=== PATIENT | male | born 1975 | race Caucasian/White ===

== ENCOUNTER 2018-06-20 08:47 | Observation (INO) | payer BC ==
[2018-06-20] MEDS ORDERED: SODIUM CHLORIDE 0.9% 1,000 ML IV STA ×2 (09:12)
--- NOTE | 2018-06-20 10:00 | ED ---
Chest Pain HPI - General Chief Complaint: Chest Pain Stated Complaint: high blood pressure, chest ache Time Seen by Provider: 06/20/18 09:12 Source: patient, RN notes reviewed, old records reviewed Mode of arrival: ambulatory Limitations: no limitations - History of Present Illness Initial Comments: This is a 43-year-old male the ER for evasive chest pain left-sided chest pain starting last night. Patient has history of high blood pressure. Patient states chest pain and cervicitis persistent up-to-date has been persistent consistent. No recent travel she no sick contacts no fever cough or congestion. No episodes of diaphoresis. No prior cardiac evaluation. Patient has a family history of high blood pressure, no history of heart disease that he knows, patient does not have high cholesterol no diabetes nonsmoker MD Complaint: chest pain -: hour(s) (12) Onset: during rest Pain Location: left chest Pain Radiation: none Severity: moderate Severity scale (1-10): 3 Quality: tightness Consistency: constant Improves With: other (Nothing, patient also her blood pressure to be high) Worsens With: nothing Anginal Symptoms: other (None) Other Symptoms: other (None) Treatments Prior to Arrival: none - Related Data Home Medications Medication Instructions Recorded Confirmed Losartan Potassium 100 mg PO DAILY 06/20/18 06/20/18 Allergies Allergy/AdvReac Type Severity Reaction Status Date / Time No Known Allergies Allergy Verified 06/20/18 09:38 Review of Systems ROS Statement: Those systems with pertinent positive or pertinent negative responses have been documented in the HPI. ROS Other: All systems not noted in ROS Statement are negative. EKG Findings - EKG Comments: EKG Findings:: EKG shows sinus rhythm rate of 74, PA 150, QRS 106, QTc 450 Past Medical History Past Medical History: Hypertension History of Any Multi-Drug Resistant Organisms: None Reported Additional Past Surgical History / Comment(s): surgery for pyloric stenosis Past Psychological History: No Psychological Hx Reported Smoking Status: Never smoker Past Alcohol Use History: None Reported Past Drug Use History: None Reported General Exam Limitations: no limitations General appearance: alert, in no apparent distress, anxious Head exam: Present: atraumatic, normocephalic, normal inspection Eye exam: Present: normal appearance, PERRL, EOMI. Absent: scleral icterus, conjunctival injection, periorbital swelling ENT exam: Present: normal exam, mucous membranes moist Neck exam: Present: normal inspection. Absent: tenderness, meningismus, lymphadenopathy Respiratory exam: Present: normal lung sounds bilaterally. Absent: respiratory distress, wheezes, rales, rhonchi, stridor Cardiovascular Exam: Present: regular rate, normal rhythm, normal heart sounds. Absent: systolic murmur, diastolic murmur, rubs, gallop, clicks GI/Abdominal exam: Present: soft, normal bowel sounds. Absent: distended, tenderness, guarding, rebound, rigid Extremities exam: Present: normal inspection, full ROM, normal capillary refill. Absent: tenderness, pedal edema, joint swelling, calf tenderness Back exam: Present: normal inspection Neurological exam: Present: alert, oriented X3, CN II-XII intact Psychiatric exam: Present: normal affect, normal mood Skin exam: Present: warm, dry, intact, normal color. Absent: rash Course Vital Signs 06/20/18 06/20/18 08:51 11:21 Temperature 98.3 F Pulse Rate 79 Respiratory 16 17 Rate Blood Pressure 160/101 150/98 O2 Sat by Pulse 99 99 Oximetry - Reevaluation(s) Reevaluation #1: 06/20/18 13:39 Medical records reviewed, noncontributory Reevaluation #2: 06/20/18 13:39 Patient still is complaining of chest pain Reevaluation #5: 06/20/18 13:[address] angio chest negative for acute disease Chest Pain MDM - MDM 43 male the ER for evaluation chest pain, coming of chest pain observation. Patient is CT here in the ER which is negative for acute disease, troponin negative. Patient be admitted for cardiology observation Critical Care Time Critical Care Time: Yes Total Critical Care Time: 31 Disposition Clinical Impression: Chest pain Disposition: ADMITTED IP TO THIS HOSP Condition: Undetermined Instructions: Chest Pain (ED) Is patient prescribed a controlled substance at d/c from ED?: No Referrals: Raven Hughes MD [Primary Care Provider] - 1-2 days
[2018-06-20 10:24] LABS: Basophils % (A) 1 %; Eosinophils # (A) 0.2 k/uL (0-0.7); Eosinophils % (A) 2 %; HGB 14.4 gm/dL (13.0-17.5); Lymphocytes % (A) 29 %; MCH 28.9 pg (25.0-35.0); MCHC 32.1 g/dL (31.0-37.0); Mean Platelet Volume 6.9; Monocytes # (A) 0.4 k/uL (0-1.0); Monocytes % (A) 6 %; Neutrophils % (A) 59 %; Platelet Count 284 k/uL (150-450); RDW 13.5 % (11.5-15.5); WBC 6.7 k/uL (3.8-10.6)
[2018-06-20 10:27] LABS: ALT 48 U/L (21-72); AST 26 U/L (17-59); Albumin 4.2 g/dL (3.5-5.0); Alkaline Phosphatase 74 U/L (38-126); Anion Gap 8 mmol/L; Blood Urea Nitrogen 16 mg/dL (9-20); Calcium 9.6 mg/dL (8.4-10.2); Carbon Dioxide 26 mmol/L (22-30); Chloride 110 mmol/L (98-107); Glucose 87 mg/dL (74-99); Lipase 208 U/L (23-300); Potassium 4.5 mmol/L (3.5-5.1); Sodium 144 mmol/L (137-145); Total Bilirubin 0.5 mg/dL (0.2-1.3); Total Protein 7.3 g/dL (6.3-8.2)
[2018-06-20 10:44] LABS: Creatine Kinase 72 U/L (55-170)
[2018-06-20 10:56] LABS: Creatine Kinase MB 0.6 ng/mL (0.0-2.4); Troponin I <0.012 ng/mL (0.000-0.034)
--- NOTE | 2018-06-20 10:58 | CT ---
EXAMINATION TYPE: CT angio chest DATE OF EXAM: 06/20/2018 COMPARISON: None HISTORY: 43-year-old male with Chest pain TECHNIQUE: Contiguous axial scanning of the chest performed with IV Contrast, patient injected with 1 00 mL of Isovue 370. Coronal/sagittal MIP reconstructions performed. CT DLP: 735.6 mGycm Automated exposure control for dose reduction was used. FINDINGS: Heart normal size without pericardial effusion. Ascending aorta appears ectatic at 3.8 cm. Bovine configuration to the aortic arch. Suboptimal opacification of the pulmonary arterial system with density around 150 Hounsfield units. N o large central or definite lobar pulmonary embolus seen. Segmental and subsegmental branches are ess entially nondiagnostic. No flattening of the interventricular septum reflux of contrast into the hepatic veins. Lungs show no consolidation or pleural effusion. Abdomen reported separately. Bones: No osseous destructive process. Mild degenerative disc disease throughout. IMPRESSION: 1. SUBOPTIMAL OPACIFICATION OF THE PULMONARY SYSTEM. NO LARGE CENTRAL OR DEFINITE LOBAR PULMONARY EMB OLUS. SEGMENTAL AND MORE DISTAL ARTERIAL BRANCHES ARE ESSENTIALLY NONDIAGNOSTIC AND EMBOLI IN THESE L OCATIONS CANNOT BE EXCLUDED ON THE BASIS OF THIS EXAM. 2. NO ACUTE PULMONARY PROCESS. 3. ABDOMEN REPORTED SEPARATELY.
[2018-06-20 10:59] LABS: D-Dimer 0.27 mg/L FEU (<0.60); INR 0.9 (<1.2); Partial Thromboplastin Time 24.4 sec (22.0-30.0); Prothrombin Time 10.1 sec (9.0-12.0)
--- NOTE | 2018-06-20 12:23 | CT ---
EXAMINATION TYPE: CT abdomen pelvis w con DATE OF EXAM: 06/20/2018 COMPARISON: None HISTORY: Chest pain CT DLP: 2260.6 mGycm Automated exposure control for dose reduction was used. CONTRAST: CT scan of the abdomen pelvis is performed with IV Contrast, patient injected with 100 mL of Isovue 3 70. FINDINGS- LUNG BASES- No significant abnormality is appreciated. LIVER/GB- No gross abnormality is appreciated. PANCREAS- No gross abnormality is seen. SPLEEN- No gross abnormality is seen. ADRENALS- No gross abnormality is seen. KIDNEYS/BLADDER- no hydronephrosis nephrolithiasis or renal mass. BOWEL- no bowel dilatation. Normal appendix. LYMPH NODES- No greater than 1cm abdominal or pelvic lymph nodes areappreciated. OSSEOUS STRUCTURES- No significant abnormality is seen. OTHER- there severe degenerative disc disease L5-S1. Prostate gland is prominent with calcifications . Calcifications the pelvis are likely related to phleboliths. IMPRESSION- 1. No acute process
[2018-06-20] MEDS ORDERED: NITROGLYCERIN SL TABS 0.4 MG TAB SUBLINGUAL PRN (13:35)
[2018-06-20] MEDS ORDERED: ASPIRIN 81 MG PO STA (13:35)
[2018-06-20] MEDS ORDERED: HEPARIN SODIUM,PORCINE 5,000 UNIT/ML 1 ML VIAL IV ONE (13:35)
[2018-06-20] MEDS ORDERED: HEPARIN SODIUM,PORCINE 5,000 UNIT/ML 1 ML VIAL IV PRN (13:35)
[2018-06-20] MEDS ORDERED: HEPARIN SOD,PORK IN 0.45% NACL 25,000 UNIT in 0.45% NACL 1 250ML.BAG IV SCH (13:45)
[2018-06-20] MEDS: SODIUM CHLORIDE 0.9% 1,000 ML IV SCH (14:00)
[2018-06-20 15:00] VITALS: BMI 37.3
[2018-06-20] MEDS ORDERED: hydrALAZINE HCL 20 MG/ML 1 ML VIAL IVP PRN ×2 (16:17→19:29)
[2018-06-20] MEDS ORDERED: ACETAMINOPHEN TAB 500 MG TAB PO PRN (16:17)
[2018-06-20] MEDS ORDERED: HYDROcodone/APAP 5-325MG 1 EACH TAB PO PRN (16:17)
[2018-06-20] MEDS ORDERED: ALPRAZolam 0.25 MG TAB PO PRN (16:17)
[2018-06-20 16:25] LABS: Creatine Kinase 63 U/L (55-170)
[2018-06-20 16:39] LABS: Creatine Kinase MB 0.5 ng/mL (0.0-2.4); Troponin I <0.012 ng/mL (0.000-0.034)
[2018-06-20] MEDS ORDERED: TEMAZEPAM 15 MG CAP PO PRN (21:00)
[2018-06-20] MEDS ORDERED: METOPROLOL TARTRATE 25 MG TAB PO SCH (21:00)
[2018-06-20] MEDS: amLODIPine 5 MG TAB PO SCH (21:06)
[2018-06-20 21:48] LABS: Creatine Kinase 63 U/L (55-170)
--- NOTE | 2018-06-20 21:58 | HP ---
HISTORY AND PHYSICAL DATE OF SERVICE: 06/20/2018 CHIEF COMPLAINT: Chest pain. HISTORY OF PRESENT ILLNESS: This 43-year-old gentleman with a past medical history of multiple medical problems, including hypertension, history of surgery for pyloric stenosis, being followed by Dr. Hughes in the outpatient setting, was complaining of chest pain. The patient also was complaining of left wrist pain for the last several days. The patient also has some injury of the left thumb area. The chest pain started to be felt late last night at 2 a.m. which was a dull type of pain felt on the left side without any radiation, about 3 out of 10 in intensity without much change. Patient came to [facility] and was admitted for further evaluation and treatment. The D-dimer was 0.27, chloride 110. Troponins were negative. Initial EKG done in the ER showed normal sinus rhythm and no acute abnormalities. Patient also had a CT scan of the abdomen and pelvis which showed no acute process. A chest CTA was also done which showed suboptimal opacification but no significant PE. Patient was admitted for evaluation. There is no history of any fever, rigor or chills. No history of headache, loss of consciousness, seizures. PAST MEDICAL HISTORY: 1. History of hypertension. 2. History of surgery for pyloric stenosis. MEDICATIONS: Losartan 100 mg p.o. daily. ALLERGIES: NONE. FAMILY HISTORY: No history of heart disease or strokes in the family. SOCIAL HISTORY: No history of smoking. No history of alcohol intake. The patient works at the [employer], [place]. REVIEW OF SYSTEMS: HEENT: No diminished vision. No diminished hearing. CARDIOVASCULAR SYSTEM: As mentioned earlier. RESPIRATORY SYSTEM: As mentioned earlier. GI: No nausea, vomiting. : No dysuria or retention. NERVOUS SYSTEM: No numbness, weakness. ALLERGY/IMMUNOLOGY: No asthma, hayfever. MUSCULOSKELETAL: As mentioned earlier. HEMATOLOGY/ONCOLOGY: No history of anemia. ENDOCRINE: No history of diabetes, hypothyroidism. CONSTITUTIONAL: As mentioned earlier. DERMATOLOGY: Negative. RHEUMATOLOGY: Negative. PSYCHIATRY: As mentioned earlier. PHYSICAL EXAMINATION: Patient is alert and oriented x3. Pulse 72, blood pressure 158/112, respiration 18, temperature 98.2, pulse ox 98% on room air. HEENT: Conjunctivae normal. Oral mucosa moist. NECK: No jugular venous distention. No carotid bruit. No lymph node enlargement. CARDIOVASCULAR SYSTEM: S1, S2 muffled. RESPIRATORY SYSTEM: Breath sounds diminished at the bases. A few scattered rhonchi. No crackles. ABDOMEN: Soft, non-tender. No mass palpable. LEGS: No edema. No swelling. Minimal tenderness in the left wrist area present along the tendons of the digitus pollex. NERVOUS SYSTEM: Higher functions as mentioned earlier. Moves all 4 limbs. No focal motor or sensory deficit. LYMPHATICS: No lymph node palpable in neck, axillae or groin. SKIN: No ulcer, rash, bleeding. LABS: Labs at this time show CBC within normal limits. Chloride is 110. Other labs are noted. CTA shows no evidence of pulmonary embolism. ASSESSMENT: 1. Chest pain, possible unstable angina. 2. Possible tenosynovitis of the left wrist. 3. Hypertension, accelerated. 4. History of pyloric stenosis surgery. RECOMMENDATIONS AND DISCUSSION: In this 43-year-old gentleman who presented with multiple complex medical issues, we will monitor the patient closely. I would recommend resuming the home medications, unstable angina protocol. Cardiology consultation. Possible stress test. I also recommend orthopedic consultation to evaluate for the tenosynovitis. Otherwise, we will continue to monitor. Prognosis guarded. Further recommendations to follow. Discussed with the patient. See orders for further details. A copy of this dictation is being forwarded to Dr. Hughes, who is the primary physician. EDWIN / BISMARK: [id number] /
[2018-06-20 22:02] LABS: Creatine Kinase MB 0.4 ng/mL (0.0-2.4); Troponin I <0.012 ng/mL (0.000-0.034)
[2018-06-21 04:11] LABS: Basophils % (A) 0 %; Eosinophils # (A) 0.2 k/uL (0-0.7); Eosinophils % (A) 3 %; HCT 39.5 % (39.0-53.0); HGB 12.9 gm/dL (13.0-17.5); Lymphocytes # (A) 2.7 k/uL (1.0-4.8); Lymphocytes % (A) 41 %; MCH 29.5 pg (25.0-35.0); MCHC 32.7 g/dL (31.0-37.0); MCV 90.2 fL (80.0-100.0); Monocytes # (A) 0.3 k/uL (0-1.0); Monocytes % (A) 5 %; Neutrophils # (A) 3.2 k/uL (1.3-7.7); Neutrophils % (A) 49 %; Platelet Count 225 k/uL (150-450); RBC 4.38 m/uL (4.30-5.90); RDW 13.4 % (11.5-15.5); WBC 6.6 k/uL (3.8-10.6)
[2018-06-21 04:21] LABS: Anion Gap 5 mmol/L; Blood Urea Nitrogen 15 mg/dL (9-20); Calcium 8.9 mg/dL (8.4-10.2); Carbon Dioxide 27 mmol/L (22-30); Chloride 107 mmol/L (98-107); Cholesterol 151 mg/dL (<200); Glucose 94 mg/dL (74-99); HDL Cholesterol 51 mg/dL (40-60); LDL Cholesterol,Calculated 85 mg/dL (0-99); Potassium 4.3 mmol/L (3.5-5.1); Sodium 139 mmol/L (137-145); Triglycerides 77 mg/dL (<150)
[2018-06-21 06:22] LABS: Appearance,Urine Clear (Clear); Bilirubin,Urine Negative (Negative); Blood,Urine Negative (Negative); Color,Urine Yellow; Glucose,Urine (UA) Negative (Negative); Ketones,Urine Negative (Negative); Leukocyte Esterase,Urine Negative (Negative); Nitrite,Urine Negative (Negative); PH, Urine 6.5 (5.0-8.0); Protein,Urine Negative (Negative); Specific Gravity,Urine 1.027 (1.001-1.035); Urobilinogen,Urine <2.0 mg/dL (<2.0)
[2018-06-21] MEDS ORDERED: ASPIRIN 325 MG TAB PO SCH (09:00)
[2018-06-21] MEDS ORDERED: LOSARTAN 50 MG TAB PO SCH (09:00)
[2018-06-21] MEDS ORDERED: ATORVASTATIN 80 MG TAB PO SCH (09:00)
[2018-06-21] MEDS ORDERED: PANTOPRAZOLE 40 MG/10 ML VIAL IVP SCH (09:00)
--- NOTE | 2018-06-21 09:31 | ECHOF ---
Referral Reason:cp, htn MEASUREMENTS -------- HEIGHT: 180.3 cm WEIGHT: 124.7 kg BP: IVSd: 1.4 cm (0.6 - 1.1) LVIDd: 4.6 cm (3.9 - 5.3) LVPWd: 1.4 cm (0.6 - 1.1) IVSs: 1.8 cm LVIDs: 3.1 cm LVPWs: 2.4 cm Ao Diam: 3.6 cm (2.0 - 3.7) AV Cusp: 2.2 cm (1.5 - 2.6) LA Diam: 2.7 cm (2.7 - 3.8) MV EXCURSION: 14.577 mm (> 18.000) MV EF SLOPE: 123 mm/s (70 - 150) EPSS: 1.4 cm MV E Emil: 1.17 m/s MV DecT: 219 ms MV A Emil: 0.64 m/s MV E/A Ratio: 1.83 AV maxP.37 mmHg AV meanP.00 mmHg AR PHT: 532 ms RAP: 5.00 mmHg RVSP: 13.09 mmHg FINDINGS -------- Sinus rhythm. This was a technically difficult study with suboptimal views. The left ventricular size is normal. There is moderate concentric left ventricular hypertrophy. O verall left ventricular systolic function is low-normal with, an EF between 50 - 55 %.possible Mid i nferior LV wall motion is hypokinetic. The right ventricle is normal in size and function. The left atrium is normal in size. The right atrium is normal in size. Lumason used There is mild aortic regurgitation. AOV opens Bicuspid. There is trace mitral regurgitation. Trace tricuspid regurgitation present. The right ventricular systolic pressure, as measured by Dopp ler, is 13.09mmHg. Trace/mild (physiologic) pulmonic regurgitation. The aortic root size is normal. Normal inferior vena cava with normal inspiratory collapse consistent with estimated right atrial pre ssure of 5 mmHg. The pericardium is normal. CONCLUSIONS -------- 1. Sinus rhythm. 2. This was a technically difficult study with suboptimal views. 3. The left ventricular size is normal. 4. There is moderate concentric left ventricular hypertrophy. 5. Overall left ventricular systolic function is low-normal with, an EF between 50 - 55 %. 6. Mid inferior LV wall motion is hypokinetic. 7. The right ventricle is normal in size and function. 8. The left atrium is normal in size. 9. The right atrium is normal in size. 10. Lumason used 11. There is mild aortic regurgitation. 12. AOV opens Bicuspid. 13. There is trace mitral regurgitation. 14. Trace tricuspid regurgitation present. 15. The right ventricular systolic pressure, as measured by Doppler, is 13.09mmHg. 16. Trace/mild (physiologic) pulmonic regurgitation. 17. The aortic root size is normal. 18. Normal inferior vena cava with normal inspiratory collapse consistent with estimated right atrial pressure of 5 mmHg. 19. The pericardium is normal. TELEGRAPH EQUIPMENT MAINTAINER: Trinity Brice RDCS
--- NOTE | 2018-06-21 09:50 | P.CNOR ---
History of Present Illness - HPI Consult date: 06/21/18 History of present illness: This is a 43-year-old male who is admitted for chest pain. Orthopedics is consulted due to left wrist pain. Patient states that the pain developed 2 weeks ago. Patient denies any fall or direct trauma to the left wrist. Patient states that he only has pain with certain movements of the left wrist. Patient denies any pain at rest or when lifting objects with the left arm. Patient denies any swelling, erythema, numbness, weakness, tingling, fever or chills. Review of Systems See HPI. Past Medical History Past Medical History: Hypertension History of Any Multi-Drug Resistant Organisms: None Reported Additional Past Surgical History / Comment(s): surgery for pyloric stenosis Past Anesthesia/Blood Transfusion Reactions: No Reported Reaction Past Psychological History: No Psychological Hx Reported Smoking Status: Never smoker Past Alcohol Use History: None Reported Past Drug Use History: None Reported Medications and Allergies Home Medications Medication Instructions Recorded Confirmed Type Losartan Potassium 100 mg PO DAILY 06/20/18 06/20/18 History Allergies Allergy/AdvReac Type Severity Reaction Status Date / Time No Known Allergies Allergy Verified 06/20/18 09:38 Physical Examination On exam patient is alert and oriented 3 and lying comfortably in bed in no acute distress. There is no swelling, erythema or ecchymosis over the left wrist. There is tenderness to palpation over the radial styloid. Positive Leona's. Skin is intact. Patient has full range of motion of the left wrist and hand. There is no tenderness to palpation over the remainder of the left wrist or hand. Sensation is intact. Neurovascular status and circulatory status are intact. Results - Labs Labs: Abnormal Lab Results - Last 24 Hours (Table) 06/20/18 06/21/18 06/21/18 Range/Units 09:42 03:52 03:52 Hgb 12.9 L (13.0-17.5) gm/dL APTT 35.5 H (22.0-30.0) sec Chloride 110 H (98-107) mmol/L H & H 06/20/18 06/21/18 Range/Units 09:42 03:52 Hgb 14.4 12.9 L (13.0-17.5) gm/dL Hct 45.0 39.5 (39.0-53.0) % Coagulation 06/20/18 Range/Units 09:42 INR 0.9 (<1.2) Result Diagrams: 06/21/18 03:52 06/21/18 03:52 Assessment and Plan (1) De Quervain's disease (radial styloid tenosynovitis) Current Visit: Yes Status: Acute Code(s): M65.4 - RADIAL STYLOID TENOSYNOVITIS [DE QUERVAIN] SNOMED Code(s): 56172643 Plan: 1. Recommend thumb spica brace to the left wrist for 2 weeks. 2. Recommend rest, ice and elevation of the left wrist. 3. Anti-inflammatories for pain. 4. Recommend follow-up as an outpatient in 2 weeks if symptoms haven't resolved. Patient is receptive to this plan.
[2018-06-21] MEDS: amLODIPine 5 MG TAB PO SCH (10:15)
--- NOTE | 2018-06-21 11:15 | P.CRDCN ---
History of Present Illness History of present illness: This is a pleasant 43-year-old male past medical history significant for hypertension. He states he has had hypertension and been on medication for 20 years. He denies history of coronary artery disease, dyslipidemia or diabetes mellitus. He has never seen her follow up with mushroom press operator for any reason. We've been asked to see him in consultation for chest pain. He states that Tuesday night he was having difficulty sleeping he was having an discomfort in his left shoulder. Around 6:00 in the morning he noticed pain moved into his left precordial region and was described as a dull pressure sensation. He checked his blood pressure home it was 160/100. He checked it multiple times change the battery status machine and still Getting the same reading. For that reason he presents to the hospital for further evaluation. Upon arrival blood pressure was 160/101 150/98. He underwent CT angiography chest which was negative for pulmonary embolism. EKG sinus mechanism with no acute ST-T wave abnormality. He continues to have a dull ache in the left precordial region with no specific aggravating or alleviating factors. Rated as 2 out of 10. No radiation to the arm, back, neck or jaw. He denies associated shortness of breath, dizziness, nausea, vomiting or palpitations. Blood pressure remains elevated at 167/101 despite being given amlodipine and Lopressor last evening. Laboratory data reviewed, WBC 6.6, hemoglobin 12.9, platelets 225, d-dimer 0.27 , sodium 139, potassium 4.3, creatinine 0.82, magnesium 2.0, cardiac enzymes negative 3, LDL 85 and HDL 51. Current cardiac medications include losartan 100 mg daily. At the time of my exam: CONSTITUTIONAL: Denies fever. Denies chills. EYES: Denies blurred vision. Denies vision changes. Denies eye pain. EARS, NOSE, MOUTH & THROAT: Denies headache. Denies sore throat. Denies ear pain. CARDIOVASCULAR: Complains of dull chest pain. Denies shortness of breath. Denies orthopnea. Denies PND. Denies palpitations. RESPIRATORY: Denies cough. GASTROINTESTINAL: Denies abdominal pain. Denies diarrhea. Denies constipation. Denies nausea. Denies vomiting. MUSCULOSKELETAL: Denies myalgias. INTEGUMENTARY: Denies pruitis. Denies rash. NEUROLOGIC: Denies numbness. Denies tingling. Denies weakness. PSYCHIATRIC: Denies anxiety. Denies depression. ENDOCRINE: Denies fatigue. Denies weight change. Denies polydipsia. Denies polyurina. GENITOURINARY: Denies burning, hematuria or urgency with micturation. HEMATOLOGIC: Denies history of anemia. Denies bleeding. Blood pressure 167/101 heart rate 61 afebrile maintaining oxygen saturation on room air GENERAL: This is a 43-year-old male in no apparent distress at the time of my examination. HEENT: Head is atraumatic, normocephalic. Pupils are equal, round. Sclerae anicteric. Conjunctivae are clear. Mucous membranes of the mouth are moist. Neck is supple. There is no jugular venous distention. No carotid bruit is heard. LUNGS: Clear to auscultation no wheezes, rales or rhonchi. No chest wall tenderness is noted on palpation or with deep breathing. HEART: Regular rate and rhythm without murmurs, rubs or gallops. S1 and S2 heard. ABDOMEN: Soft, nontender. Bowel sounds are heard. No organomegaly noted. EXTREMITIES: No evidence of peripheral edema and no calf tenderness noted. VASCULAR: Radial and dorsalis pedis pulses palpated, no evidence of clubbing. NEUROLOGIC: Patient is awake, alert and oriented x3. ASSESSMENT Chest pain, atypical. An acute coronary event has been ruled out with no EKG evidence of ischemia negative cardiac enzymes. Hypertension, uncontrolled Obese, BMI 37. PLAN An acute coronary event has been ruled out with no EKG evidence of ischemia negative cardiac enzymes. Obtain 2-D echocardiogram and Doppler study to assess cardiac structure and function. Continue losartan 100 mg daily as well as amlodipine 5 mg daily. Give dose now and repeat blood pressure. Perform stress echocardiogram to assess for stress-induced cardiac ischemia. Thank you kindly for this consultation. Nurse Practitioner note has been reviewed, I agree with a documented findings and plan of care. Patient was seen and examined. Past Medical History Past Medical History: Hypertension History of Any Multi-Drug Resistant Organisms: None Reported Additional Past Surgical History / Comment(s): surgery for pyloric stenosis Past Anesthesia/Blood Transfusion Reactions: No Reported Reaction Past Psychological History: No Psychological Hx Reported Smoking Status: Never smoker Past Alcohol Use History: None Reported Past Drug Use History: None Reported Medications and Allergies Home Medications Medication Instructions Recorded Confirmed Type Losartan Potassium 100 mg PO DAILY 06/20/18 06/20/18 History Allergies Allergy/AdvReac Type Severity Reaction Status Date / Time No Known Allergies Allergy Verified 06/20/18 09:38 Physical Exam Vitals: Vital Signs Temp Pulse Pulse Resp BP BP BP 06/21/18 09:42 167/101 06/21/18 08:00 61 18 06/21/18 07:20 97.3 F L 61 18 160/100 06/21/18 04:00 18 06/21/18 03:42 97.9 F 62 18 121/74 06/21/18 00:00 97.7 F 58 L 18 153/91 06/20/18 23:21 18 06/20/18 21:06 157/102 06/20/18 20:00 18 06/20/18 19:45 98.4 F 71 18 175/95 06/20/18 16:00 72 18 06/20/18 15:09 72 18 06/20/18 14:25 98.2 F 72 18 158/112 06/20/18 13:30 63 18 149/97 06/20/18 13:00 68 16 144/100 06/20/18 12:30 67 17 149/116 06/20/18 12:00 62 17 144/104 06/20/18 11:30 70 18 150/98 06/20/18 11:21 17 150/98 Pulse Ox 06/21/18 09:42 06/21/18 08:00 06/21/18 07:20 98 06/21/18 04:00 06/21/18 03:42 97 06/21/18 00:00 97 06/20/18 23:21 06/20/18 21:06 06/20/18 20:00 06/20/18 19:45 99 06/20/18 16:00 06/20/18 15:09 06/20/18 14:25 98 06/20/18 13:30 97 06/20/18 13:00 98 06/20/18 12:30 97 06/20/18 12:00 98 06/20/18 11:30 96 06/20/18 11:21 99 Intake and Output 06/20/18 06/21/18 06/21/18 22:59 06:59 14:59 Intake Total 595.6 94.738 Balance 595.6 94.738 Intake: Intake, IV Titration 77.6 94.738 Amount Heparin Sod,Pork in 0.45% 77.6 94.738 NaCl 25,000 unit In 0.45 % NaCl 1 250ml.bag @ 8 UNITS/KG/HR 9.97 mls/hr IV .Q24H [facility] Rx#: [id number] Oral 518 Other: Voiding Method Toilet Toilet Toilet # Voids 2 2 Results 06/21/18 03:52 06/21/18 03:52 Cardiac Enzymes 06/20/18 06/20/18 06/20/18 Range/Units 09:42 15:47 21:15 CK-MB (CK-2) 0.6 0.5 0.4 (0.0-2.4) ng/mL Troponin I <0.012 <0.012 <0.012 (0.000-0.034) ng/mL Coagulation 06/20/18 06/20/18 06/21/18 Range/Units 09:42 21:15 03:52 PT 10.1 (9.0-12.0) sec APTT 24.4 28.4 35.5 H (22.0-30.0) sec Lipids 06/21/18 Range/Units 03:52 Triglycerides 77 (<150) mg/dL Cholesterol 151 (<200) mg/dL HDL Cholesterol 51 (40-60) mg/dL CBC 06/20/18 06/21/18 Range/Units 09:42 03:52 WBC 6.7 6.6 (3.8-10.6) k/uL RBC 5.00 4.38 (4.30-5.90) m/uL Hgb 14.4 12.9 L (13.0-17.5) gm/dL Hct 45.0 39.5 (39.0-53.0) % Plt Count 284 225 (150-450) k/uL Comprehensive Metabolic Panel 06/21/18 Range/Units 03:52 Sodium 139 (137-145) mmol/L Potassium 4.3 (3.5-5.1) mmol/L Chloride 107 (98-107) mmol/L Carbon Dioxide 27 (22-30) mmol/L BUN 15 (9-20) mg/dL Creatinine 0.82 (0.66-1.25) mg/dL Glucose 94 (74-99) mg/dL Calcium 8.9 (8.4-10.2) mg/dL Current Medications Generic Name Dose Route Start Last Admin Trade Name Freq PRN Reason Stop Dose Admin Acetaminophen 500 mg 06/20/18 16:17 Tylenol Tab PO Q6HR PRN Fever and/ or Pain Hydrocodone Bitart/Acetaminophen 1 each 06/20/18 16:17 Kinta 5-325 PO Q6HR PRN Pain Alprazolam 0.25 mg 06/20/18 16:17 Xanax PO TID PRN Anxiety Amlodipine Besylate 5 mg 06/20/18 19:30 06/21/18 10:15 Norvasc PO 5 mg DAILY ALBERTO Administration Aspirin 325 mg 06/21/18 09:00 Aspirin PO DAILY ALBERTO Heparin Sodium (Porcine) 0 unit 06/20/18 13:35 Heparin IV Q6HR PRN Low PTT Protocol Sodium Chloride 1,000 mls @ 100 mls/hr 06/20/18 13:45 06/20/18 14:00 Saline 0.9% IV 100 mls/hr .Q10H ALBERTO Administration Losartan Potassium 100 mg 06/21/18 09:00 06/21/18 08:23 Cozaar PO 100 mg DAILY ALBERTO Administration Nitroglycerin 0.4 mg 06/20/18 13:35 Nitrostat SUBLINGUAL Q5M PRN Chest Pain Pantoprazole Sodium 40 mg 06/21/18 09:00 Protonix IVP DAILY ALBERTO Temazepam 15 mg 06/20/18 21:00 Restoril PO HS PRN Insomnia Intake and Output 06/20/18 06/21/18 06/21/18 22:59 06:59 14:59 Intake Total 595.6 94.738 Balance 595.6 94.738 Intake: Intake, IV Titration 77.6 94.738 Amount Heparin Sod,Pork in 0.45% 77.6 94.738 NaCl 25,000 unit In 0.45 % NaCl 1 250ml.bag @ 8 UNITS/KG/HR 9.97 mls/hr IV .Q24H [facility] Rx#: [id number] Oral 518 Other: Voiding Method Toilet Toilet Toilet # Voids 2 2 06/21/18 03:52 06/21/18 03:52
[2018-06-21] MEDS: SODIUM CHLORIDE 0.9% 1,000 ML IV SCH (15:57)
[2018-06-21 16:03] VITALS: BP 133/88; PULSE 79; RESP 18; TEMP 98.1
--- NOTE | 2018-06-21 23:42 | DS ---
DISCHARGE SUMMARY DATE OF SERVICE: 06/21/2018 FINAL DIAGNOSES: 1. Chest pain, musculoskeletal; possibly negative stress test. 2. Possible tenosynovitis of the left wrist. 3. Hypertension, accelerated. 4. History of pyloric stenosis surgery. DISCHARGE DISPOSITION: The patient will be discharged in stable condition with guarded prognosis. HISTORY OF PRESENT ILLNESS: This 43-year-old gentleman with a past medical history of multiple medical problems was admitted with chest pain. Myocardial infarction was ruled out. Cardiology performed a stress test, and per staff stress test was negative. The patient will be discharged in stable condition with guarded prognosis. Patient also had tenosynovitis. Orthopedics saw the patient and advised a splint and NSAIDs. No chest pain. No palpitations. No fever. PHYSICAL EXAMINATION: Alert and oriented x3. CARDIOVASCULAR SYSTEM: S1, S2 muffled. ABDOMEN: Soft. NERVOUS SYSTEM: No focal deficit. DISCHARGE ADVICE AND MEDICATIONS: 1. Discharge cardiac is cardiac. 2. Activity limited until followup. 3. Follow up with Dr. Hughes in 2 to 3 days. 4. Follow up with Dr. Zacarias [facility] p.r.n. 5. Losartan 100 mg p.o. daily. 6. Tylenol 500 mg q.6 p.r.n. 7. Norvasc 5 mg p.o. daily. Once again the patient will be discharged in stable condition with guarded prognosis. MMODL / IJN: [id number] /
--- NOTE | 2018-06-23 11:32 | ECHOS ---
STRESS ECHOCARDIOGRAM DATE OF SERVICE: 06/21/2018 INDICATIONS: Chest pain. MEDICATIONS: BASELINE HEART RATE: 82 BASELINE BLOOD PRESSURE: 181/95 MAXIMUM HEART RATE: 156 MAXIMUM BLOOD PRESSURE: 209/75 85% MPHR: 150 100% MPHR: 176 METS: 10.7 MAXIMUM STAGE REACHED: III TOTAL EXERCISE TIME: 9 minutes CLINICAL INFORMATION: Patient was exercised for a total period of 9 minutes. The peak heart rate of 156 was achieved. Maximum blood pressure of 209/75 mmHg was noted. Resting EKG shows normal sinus rhythm with normal SD interval and QRS duration and normal ST-T waves. No ST- segment depression suggestive of ischemia is noted. The baseline echocardiographic images reveals normal left ventricular chamber size with normal left ventricular systolic function. In the immediate postexercise period, normal increase in the wall thickness and contractility is noted. FINAL IMPRESSION: 1. This stress echocardiographic study is negative for stress-induced ischemia. 2. EKG portion of the stress test is not suggestive of ischemia. 3. Patient's exercise tolerance is normal. 4. The patient has evidence of a resting high blood pressure. MMODL / IJN: [id number] /
== END 2018-06-21 16:57 | disposition home or self-care (01) ==
LOC: EC 08:47 → 1SOBS 13:35
PROVIDERS: ADMIT Hospitalist; ATTEND Hospitalist
DX: R07.89 Other chest pain (principal); I10 Essential (primary) hypertension; M25.532 Pain in left wrist; Z79.899 Other long term (current) drug therapy; R07.2 Precordial pain; M25.512 Pain in left shoulder; Z68.37 Body mass index [BMI] 37.0-37.9, adult; E66.9 Obesity, unspecified
CPT/HCPCS: 96361 ×2; 96366 ×2; 96375; 96376; 96365; 99291; 36415; 93005; 93306; 93351; 85379; 80061; 80053; 80048; 82550; 82553; 83690; 83735; 84484; 85025 ×2; 85610; 85730 ×2; 81003; 71275; 74177; G0378 ×2; J1644 ×2; C9113; Q9950; Q9967

== ENCOUNTER → 2019-04-26 | Outpatient (CLI) | payer BC ==
--- NOTE | 2019-04-27 07:25 | CT ---
EXAMINATION TYPE: CT soft tissue neck wo con DATE OF EXAM: 04/26/2019 COMPARISON: None HISTORY: Localized swelling and lump. BB placed on region of interest. CT DLP: 742.3 mGycm CONTRAST: Patient injected with 0 mL of Isovue 300. TECHNIQUE: Axial images at 3 mm thick sections. Reconstructed images in the coronal plane and sagitt al plane are reviewed. FINDINGS: Limited CT sections are obtained the lung apices. The lung apices appear clear. CT neck: The torus tubarius and fossa of Rosenmuller are normal. Gifted Teacher spaces are normal. Para nasal sinuses and mastoid air cells are clear. Parotid glands appear normal and symmetrical. Submandibular glands, are normal. Parapharyngeal spac es are normal. No suspicious adenopathy is evident. There are multiple shotty lymph nodes within the submandibular regions and submental regions within the jugulodigastric regions. The hypopharynx appears within normal limits. The vocal cord appears to be closed at the time of the scanning. Underlying abnormality cannot be jag luated. No suspicious obvious suggestion for abnormality radiographically apparent. Thyroid as visualized is normal. At the level marked by the BB no suspicious underlying abnormality is evident. This just below the isthmus of the thyroid. Osseous structures are normal. There is a retention cyst within the left maxillary sinus. IMPRESSIONS: 1. Scattered small bilateral lymph nodes within the neck. Suspicious enlarged lymphadenopathy is not evident. 2. No discrete abnormality at the level of the BB. This is near the level of the isthmus of thyroid.
== END ==
LOC: RADCTMAIN 16:57
PROVIDERS: ATTEND Internal Medicine
DX: R22.0 Localized swelling, mass and lump, head (principal)
CPT/HCPCS: 70490

== ENCOUNTER → 2019-04-30 | Outpatient (CLI) | payer BC ==
[2019-04-30 18:41] LABS: Thyroid Peroxidase Antibodies <28.0 U/mL (0.0-60.0)
== END | disposition home or self-care (01) ==
LOC: LABWHC1 15:13
PROVIDERS: ATTEND Otolaryngology
DX: E01.0 Iodine-deficiency related diffuse (endemic) goiter (principal)
CPT/HCPCS: 36415; 84443; 86376; 86800

== ENCOUNTER → 2023-09-16 | Outpatient (CLI) | payer BC ==
--- NOTE | 2023-09-16 11:55 | CT ---
Exam: CT Angiography of the Chest. Date: 09/16/2023. Comparison: None History: Thoracic aortic aneurysm. Technique: CT examination of the chest was performed following the intravenous administration of 100 mL of Isovue-370. CT dose lowering techniques were used, to include: automated exposure control, adju stment for patient size, and/or use of iterative reconstruction. FINDINGS: Mediastinum and Julia: There is no axillary, mediastinal or hilar lymphadenopathy. Pleural and Pericardial spaces: There are no pleural or pericardial effusions. Upper Abdomen: There is diffuse decreased attenuation of the liver compatible fatty liver infiltratio n. The visualized upper abdomen otherwise appears unremarkable. Cardiovascular: The ascending thoracic aorta measures up to 4.2 cm in diameter. This is not significa nt changed since the previous examination. Pulmonary Artery: There are no filling defects in the pulmonary arteries. Lung Parenchyma and Airways: The lungs are clear. Bones: No fracture or aggressive osseous lesion. IMPRESSION: 1. Dilation of the ascending thoracic aorta is not significantly changed. 2. No evidence of aortic dissection. 3. No evidence of pneumonia, pleural or pericardial effusions.
== END | disposition home or self-care (01) ==
LOC: RADCTMAIN 10:04
PROVIDERS: ATTEND Thoracic Surgery (Cardiothoracic Vascular Surgery)
DX: I71.21 Aneurysm of the ascending aorta, without rupture (principal)
CPT/HCPCS: 71275; Q9967

== ENCOUNTER → 2024-09-25 | Outpatient (CLI) | payer BC ==
--- NOTE | 2024-09-25 09:18 | CT ---
EXAMINATION TYPE: CT angio chest CT DLP: 915 mGycm, Automated exposure control for dose reduction was used. DATE OF EXAM: 09/25/2024 9:08 AM COMPARISON: CTA chest of 09/16/2023, 06/20/2018 CLINICAL INDICATION:Male, 49 years old with history of I71.20 THORACIC AORTIC ANEURYSM; Thoracic Aort ic Aneurysm TECHNIQUE/CONTRAST: CTA scan of the thorax is performed without and with IV Contrast, patient injected with 100 ml mL of Isovue 370. 3D and MIP reconstructed images are created on an independent workstation and reviewed.. FINDINGS: Lungs/Pleura: No evidence of focal consolidation, pleural effusion or pneumothorax. No suspicious pul monary nodule or mass. Airway: Large airways are patent. Heart: Size within normal limits.No pericardial effusion. No significant coronary artery calcificatio ns. Vasculature: Bovine configuration to the aortic arch. Stable aneurysmal dilatation of the aortic root measuring up to 4.7 cm. Stable aneurysmal dilatation of the ascending thoracic aorta measuring up to 4.2 cm. The descending thoracic aorta measures 2.6 cm. No evidence of intramural hematoma or dissect ion. No pulmonary embolism. Mediastinum: No evidence of adenopathy. Musculoskeletal: No acute osseous abnormalities. Minimal multilevel degenerative disc disease. Soft Tissues: Unremarkable. Lower neck: No significant findings. Upper Abdomen: No significant findings. IMPRESSION: Stable aneurysmal dilatation of the aortic root and ascending thoracic aorta. No evidence for intramu ral hematoma or dissection. [facility], , 09/25/2024 9:15 AM
== END | disposition home or self-care (01) ==
LOC: RADCTMAIN 07:41
PROVIDERS: ATTEND Thoracic Surgery (Cardiothoracic Vascular Surgery)
DX: I71.21 Aneurysm of the ascending aorta, without rupture (principal)
CPT/HCPCS: 71275; Q9967